=== PATIENT | female | born 1985 | race American Indian/Alaskan Native ===

== ENCOUNTER 2017-02-26 22:59 | Emergency (ER) | payer SELFPAY ==
[2017-02-27 00:53] LABS: Basophils % (Auto) 0.8 % (0.0-1.8); Hematocrit 37.8 % (30.3-42.9); Hemoglobin 12.7 gm/dl (10.1-14.3); Mean Corpuscular HGB Conc 34 % (30-34); Mean Corpuscular Hemoglobin 30 pg (28-32); Mean Corpuscular Volume 89 fl (79-97); Platelet Count 318 K/mm3 (140-440); Red Blood Count 4.23 M/mm3 (3.65-5.03); Red Cell Distribution Width 14.4 % (13.2-15.2); White Blood Count 6.3 K/mm3 (4.5-11.0)
[2017-02-27 01:08] LABS: Anion Gap 17 mmol/L; BUN/Creatinine Ratio 11; Blood Urea Nitrogen 8 mg/dL (7-17); Calcium 9.2 mg/dL (8.4-10.2); Carbon Dioxide 26 mmol/L (22-30); Chloride 105.5 mmol/L (98-107); Glucose 90 mg/dL (65-100); Sodium 144 mmol/L (137-145)
[2017-02-27] MEDS ORDERED: PROVENTIL IH ONE ×4 (01:20→06:14)
[2017-02-27] MEDS ORDERED: ZOFRAN ODT ONE (02:27)
[2017-02-27] MEDS ORDERED: ZOFRAN ODT PO ONE (02:29)
[2017-02-27] MEDS ORDERED: TYLENOL ONE (04:34)
[2017-02-27] MEDS ORDERED: TYLENOL PO ONE (04:36)
--- NOTE | 2017-02-27 04:57 | XRay Report ---
FINAL REPORT EXAM: XR CHEST ROUTINE 2V HISTORY: flu and cough TECHNIQUE: PA and lateral chest radiographs PRIORS: None. FINDINGS: No mediastinal shift. Cardiac silhouette is not enlarged. Overlying sternotomy wires. No pneumothorax or effusion. Ill-defined opacity in the anterior left upper lobe. No acute skeletal finding. IMPRESSION: Ill-defined opacity in the anterior left upper lobe may represent developing focal airspace disease.
[2017-02-27 06:06] VITALS: BP 109/45
[2017-02-27] MEDS ORDERED: ATROVENT IH ONE ×2 (06:13→06:14)
[2017-02-27 08:45] LABS: Bilirubin,Urine NEG (Negative); Blood,Urine NEG (Negative); Ketones,Urine 20 mg/dL (Negative); Leukocyte Esterase,Urine TR (Negative); Mucus,Urine FEW /HPF; Nitrite,Urine NEG (Negative); Protein,Urine <15 mg/dL mg/dL (Negative)
[2017-02-27] MEDS ORDERED: TORADOL IV ONE (08:49)
[2017-02-27] MEDS ORDERED: NACL 0.9% 1000 ML 1,000 ML IV ONE (08:49)
--- NOTE | 2017-02-27 08:50 | Emergency Department Report ---
ED General Adult HPI - General Chief complaint: Upper Respiratory Infection Stated complaint: N/V,FLU Time Seen by Provider: 02/27/17 08:42 Source: patient, EMS (ems notes not available at time of chart dictation), RN notes reviewed Mode of arrival: Ambulatory Limitations: No Limitations - History of Present Illness Initial comments: This is a 31-year-old female who is previously unknown to this provider. Has a past medical history of asthma, heart surgery 3 with ventricular repair, possibly ventricular septal defect, the patient is not certain. Patient presents to the ER with complaints of cough, mucus production, subjective fever, chest wall tightness, generalized malaise. Patient reports that she was recently diagnosed with influenza-like illness, at another hospital , completed medication, felt better and then worse. Her symptoms are constant, they worse with physical exertion, and a decreased with rest. Patient reports that she is not given for the past 2 months, patient reports no leg pain or leg swelling posteriorly on the calf, patient reports no DVT or pulmonary embolus risk factors. -: Gradual, days(s) Location: chest, back, left, right, upper extremity, lower extremity Severity scale (0 -10): 10 Quality: aching Improves with: medication, rest Worsens with: movement Associated Symptoms: chest pain, cough, malaise, shortness of breath, weakness - Related Data Previous Rx's Medication Instructions Recorded Last Taken Type Ibuprofen [Motrin 600 MG tab] 600 mg PO Q8H PRN #30 tablet 04/06/15 Unknown Rx Multivitamin with Iron [Tab-A-Ivette 1 each PO DAILY #30 tablet 04/06/15 Unknown Rx with Iron] oxyCODONE /ACETAMINOPHEN [Percocet 1 tab PO Q6HR PRN #30 tablet 04/06/15 Unknown Rx 5/325] Acetaminophen [Tylenol Arthritis] 650 mg PO Q6HR PRN #30 tablet.er 02/27/17 Unknown Rx Albuterol Sulfate [Proair 90 mcg IH Q4HR PRN #2 aer.pow.[email or web address] 02/27/17 Unknown Rx Respiclick] Azithromycin 250 mg PO QDAY #4 tablet 02/27/17 Unknown Rx Benzonatate [Tessalon Perles] 100 mg PO Q8HR PRN #30 capsule 02/27/17 Unknown Rx Fluticasone [Flonase] 1 spray NS QDAY #1 bottle 02/27/17 Unknown Rx Ibuprofen [Motrin] 600 mg PO Q8H PRN #30 tablet 02/27/17 Unknown Rx Ondansetron [Zofran Odt] 4 mg PO Q8HR PRN #20 tab.rapdis 02/27/17 Unknown Rx predniSONE [Deltasone] 40 mg PO QDAY #8 tab 02/27/17 Unknown Rx Allergies Allergy/AdvReac Type Severity Reaction Status Date / Time ceftriaxone sodium Allergy Hives Verified 04/03/15 04:25 [From Rocephin] Penicillins Allergy Hives Verified 02/27/17 00:00 ED Review of Systems ROS: Stated complaint: N/V,FLU Other details as noted in HPI ED Past Medical Hx - Past Medical History Previous Medical History?: Yes Hx Congestive Heart Failure: No Hx Diabetes: No Hx Asthma: Yes Hx COPD: No - Surgical History Past Surgical History?: Yes Additional Surgical History: Heart Surgery X 3 Ventricular Shunt - Social History Smoking Status: Current Every Day Smoker - Medications Home Medications: Home Medications Medication Instructions Recorded Confirmed Last Taken Type Ibuprofen [Motrin 600 MG tab] 600 mg PO Q8H PRN #30 tablet 04/06/15 Unknown Rx Multivitamin with Iron [Tab-A-Ivette 1 each PO DAILY #30 tablet 04/06/15 Unknown Rx with Iron] oxyCODONE /ACETAMINOPHEN [Percocet 1 tab PO Q6HR PRN #30 tablet 04/06/15 Unknown Rx 5/325] Acetaminophen [Tylenol Arthritis] 650 mg PO Q6HR PRN #30 tablet.er 02/27/17 Unknown Rx Albuterol Sulfate [Proair 90 mcg IH Q4HR PRN #2 aer.pow.ba 02/27/17 Unknown Rx Respiclick] Azithromycin 250 mg PO QDAY #4 tablet 02/27/17 Unknown Rx Benzonatate [Tessalon Perles] 100 mg PO Q8HR PRN #30 capsule 02/27/17 Unknown Rx Fluticasone [Flonase] 1 spray NS QDAY #1 bottle 02/27/17 Unknown Rx Ibuprofen [Motrin] 600 mg PO Q8H PRN #30 tablet 02/27/17 Unknown Rx Ondansetron [Zofran Odt] 4 mg PO Q8HR PRN #20 tab.rapdis 02/27/17 Unknown Rx predniSONE [Deltasone] 40 mg PO QDAY #8 tab 02/27/17 Unknown Rx ED Physical Exam - General Limitations: No Limitations General appearance: alert, in no apparent distress - Head Head exam: Present: atraumatic, normocephalic - Eye Eye exam: Present: normal appearance, EOMI. Absent: nystagmus - ENT ENT exam: Present: normal exam, normal orophraynx, mucous membranes moist, TM's normal bilaterally, normal external ear exam - Neck Neck exam: Present: normal inspection, full ROM - Respiratory Respiratory exam: Present: wheezes, rhonchi. Absent: respiratory distress - Cardiovascular Cardiovascular Exam: Present: regular rate, normal rhythm, normal heart sounds. Absent: systolic murmur, diastolic murmur, rubs, gallop - GI/Abdominal GI/Abdominal exam: Present: soft, normal bowel sounds. Absent: distended, tenderness, guarding, rebound, rigid, pulsatile mass - Extremities Exam Extremities exam: Present: normal inspection, full ROM, normal capillary refill. Absent: pedal edema, joint swelling, calf tenderness - Back Exam Back exam: Present: normal inspection, full ROM. Absent: tenderness, CVA tenderness (R), paraspinal tenderness, vertebral tenderness - Neurological Exam Neurological exam: Present: alert, oriented X3, CN II-XII intact, normal gait, other (Extraocular movements intact. Tongue midline. No facial droop. Facial sensation intact to light touch in the V1, V2, V3 distribution bilaterally. 5 and 5 strength in 4 extremities.. Sensation is intact to light touch in 4 extremities.). Absent: motor sensory deficit - Psychiatric Psychiatric exam: Present: normal affect, normal mood - Skin Skin exam: Present: warm, dry, intact, normal color. Absent: rash ED Course Vital Signs 02/26/17 02/27/17 02/27/17 23:07 00:04 01:26 Temperature 98.3 F 98.3 F Pulse Rate 71 66 Pulse Rate [ 85 Bilateral] Respiratory 18 18 Rate Respiratory 15 Rate [Bilateral ] Blood Pressure 116/68 112/68 O2 Sat by Pulse 97 95 Oximetry 02/27/17 02/27/17 02/27/17 04:39 05:39 06:04 Temperature 98.2 F Pulse Rate 78 Pulse Rate [ Bilateral] Respiratory 20 18 18 Rate Respiratory Rate [Bilateral ] Blood Pressure 109/45 O2 Sat by Pulse 93 Oximetry 02/27/17 06:20 Temperature Pulse Rate Pulse Rate [ 82 Bilateral] Respiratory Rate Respiratory 18 Rate [Bilateral ] Blood Pressure O2 Sat by Pulse Oximetry ED Medical Decision Making - Lab Data Result diagrams: 02/27/17 00:35 02/27/17 00:35 Vital Signs 02/26/17 02/27/17 02/27/17 23:07 00:04 01:26 Temperature 98.3 F 98.3 F Pulse Rate 71 66 Pulse Rate [ 85 Bilateral] Respiratory 18 18 Rate Respiratory 15 Rate [Bilateral ] Blood Pressure 116/68 112/68 O2 Sat by Pulse 97 95 Oximetry 02/27/17 02/27/17 02/27/17 04:39 05:39 06:04 Temperature 98.2 F Pulse Rate 78 Pulse Rate [ Bilateral] Respiratory 20 18 18 Rate Respiratory Rate [Bilateral ] Blood Pressure 109/45 O2 Sat by Pulse 93 Oximetry 02/27/17 06:20 Temperature Pulse Rate Pulse Rate [ 82 Bilateral] Respiratory Rate Respiratory 18 Rate [Bilateral ] Blood Pressure O2 Sat by Pulse Oximetry Labs 02/27/17 02/27/17 02/27/17 00:35 00:35 00:35 WBC 6.3 RBC 4.23 Hgb 12.7 Hct 37.8 MCV 89 MCH 30 MCHC 34 RDW 14.4 Plt Count 318 Lymph % (Auto) 22.3 [place] % (Auto) 9.9 H Eos % (Auto) 8.0 H Baso % (Auto) 0.8 Lymph # 1.4 [place] # 0.6 Eos # 0.5 H Baso # 0.0 Seg Neutrophils % 59.0 Seg Neutrophils # 3.7 Sodium 144 Potassium 4.0 Chloride 105.5 Carbon Dioxide 26 Anion Gap 17 BUN 8 Creatinine 0.7 Estimated GFR > 60 BUN/Creatinine Ratio 11 Glucose 90 Calcium 9.2 Total Creatine Kinase Troponin T HCG, Qual Negative Urine Color Urine Turbidity Urine pH Ur Specific [place] Urine Protein Urine Glucose (UA) Urine Ketones Urine Blood Urine Nitrite Urine Bilirubin Urine Urobilinogen Ur Leukocyte Esterase Urine WBC (Auto) Urine RBC (Auto) U Epithel Cells (Auto) Urine Mucus 02/27/17 02/27/17 02/27/17 08:19 08:53 08:56 WBC RBC Hgb Hct MCV MCH MCHC RDW Plt Count Lymph % (Auto) [place] % (Auto) Eos % (Auto) Baso % (Auto) Lymph # [place] # Eos # Baso # Seg Neutrophils % Seg Neutrophils # Sodium Potassium Chloride Carbon Dioxide Anion Gap BUN Creatinine Estimated GFR BUN/Creatinine Ratio Glucose Calcium Total Creatine Kinase 168 H Troponin T < 0.010 HCG, Qual Urine Color Yellow Urine Turbidity Clear Urine pH 5.0 Ur Specific [place] 1.015 Urine Protein <15 mg/dl Urine Glucose (UA) Neg Urine Ketones 20 Urine Blood Neg Urine Nitrite Neg Urine Bilirubin Neg Urine Urobilinogen 2.0 Ur Leukocyte Esterase Tr Urine WBC (Auto) 3.0 Urine RBC (Auto) 4.0 U Epithel Cells (Auto) 4.0 Urine Mucus Few - EKG Data -: EKG Interpreted by Me - EKG Data When compared to previous EKG there are: previous EKG unavailable 02/27/17 10:28 Sinus, 81 bpm, normal axis, QTC prolonged, right bundle branch block, abnormal EKG, but morphologically consistent with ST elevation myocardial infarction - Radiology Data Radiology results: report reviewed, image reviewed X-ray of the chest suggest developing upper lobe opacity in the left hemithorax , maybe early pneumonia - Medical Decision Making Differential diagnosis, including not limited to: Pneumonia, cold, bronchitis, upper respiratory tract infection, influenza-like illness Assessment and plan: 31-year-old female with cough, wheezing, clinical history supportive of infectious process, x-ray of the chest suggest possible upper lobe pneumonia. Patient has no pulmonary embolus or DVT risk factors she is low risk by well's criteria, patient did endorse atypical chest discomfort for the past few days, troponin negative 1, therefore myocarditis/pericarditis is very unlikely. Low risk by BJ score, low risk by heart score, patient at very low risk for major adverse cardiac event. She felt improved after supportive care, is able to tolerate oral feeds and will be discharged with albuterol, steroids, azithromycin, and nausea medication. Return precautions are reviewed. Given lack of dense consolidation on x-ray the chest, I think post viral MRSA pneumonia is also unlikely. Critical care attestation.: If time is entered above; I have spent that time in minutes in the direct care of this critically ill patient, excluding procedure time. ED Disposition Clinical Impression: Bronchitis Disposition: [id number] TO HOME OR SELFCARE Is pt being admited?: No Does the pt Need Aspirin: No Condition: Stable Instructions: Acute Bronchitis (ED) Additional Instructions: Take the medications as directed. Follow-up with the primary care doctor within the next 7-10 days. Return to the ER went away with fevers, chills, severe chest pain, severe shortness of breath, confusion, intractable nausea or vomiting, inability to tolerate liquid feeds. Symptoms most likely coming from cold/bronchitis, possible left upper lobe early pneumonia. Therefore, it is very important to follow-up with the primary care doctor is recommended to assess for disease progression. Referrals: MALCOM COLE MD [Primary Care Provider] - 3-5 Days [facility] [Provider Group] - 3-5 Days
[2017-02-27] MEDS ORDERED: ZITHROMAX PO ONE (09:00)
[2017-02-27] MEDS ORDERED: REGLAN ONE (09:29)
[2017-02-27] MEDS ORDERED: REGLAN IV ONE (09:36)
== END 2017-02-27 11:09 | disposition home or self-care (01) ==
LOC: ED 22:59
DX: J40 Bronchitis, not specified as acute or chronic (principal); F17.200 Nicotine dependence, unspecified, uncomplicated; Z88.0 Allergy status to penicillin; Z88.1 Allergy status to other antibiotic agents
CPT/HCPCS: 36415; 71020; 80048; 81001; 82550; 84484; 84703; 85025; 93005; 93010; 96361; 96374; 96375; 99285; J1885; J2765; J2930; J7030; Q0162

== ENCOUNTER 2020-05-03 23:27 | Emergency (ER) | payer MEDICAID ==
[2020-05-03] MEDS ORDERED: predniSONE 50 MG TAB PO STA (23:37)
[2020-05-03] MEDS ORDERED: ALBUTEROL 2.5 MG/3 ML NEBU IH ONE (23:37)
--- NOTE | 2020-05-04 00:44 | XRay Report ---
XR chest routine 2V INDICATION / CLINICAL INFORMATION: sob. COMPARISON: None available. FINDINGS: SUPPORT DEVICES: None. HEART /PULMONARY VASCULATURE: No significant abnormality. Median sternotomy changes LUNGS / PLEURA: No significant pulmonary or pleural abnormality. No pneumothorax. ADDITIONAL FINDINGS: No significant additional findings. IMPRESSION: 1. No acute findings. Signer Name: Rafi Wilson MD Signed: 05/04/2020 12:39 AM Workstation Name: [id number]
[2020-05-04] MEDS ORDERED: ALBUTEROL 2.5 MG/3 ML NEBU IH ONE ×2 (02:00→06:11)
[2020-05-04] MEDS ORDERED: IPRATROPIUM 0.02% NEBU 2.5 ML IH ONE (02:01)
--- NOTE | 2020-05-04 03:31 | Emergency Department Report ---
HPI <LEYVAJOANNA - Last Filed: 05/04/20 06:54> - HPI HPI: This is a 34-year-old female presents to the emergency department with a complaint of shortness of breath, wheezing and a mixed dry and productive cough that started today. The patient does have a history of asthma. She tried her home nebulizer without any relief. The patient just gave by on 04/28 at [facility], [place]. She was discharged home 2 days ago, Monday. Patient says that she has a history of preeclampsia during this most recent . She denies any fever, chest pain, nausea, vomiting, back pain, diaphoresis. She does admit to lower extremity swelling but says that this has been consistent recently with her preeclampsia and recent surgery. <MARIAN NIETO S - Last Filed: 05/04/20 07:45> - General Chief Complaint: Dyspnea/Respdistress Time Seen by Provider: 05/04/20 03:03 ED Past Medical Hx <JOANNA LEYVA - Last Filed: 05/04/20 06:54> - Past Medical History Previous Medical History?: Yes Hx Congestive Heart Failure: No Hx Diabetes: No Hx Asthma: Yes Hx COPD: No Additional medical history: preclampsia - Surgical History Past Surgical History?: Yes Additional Surgical History: Heart Surgery X 3 Ventricular Shunt. x4 - Social History Smoking Status: Never Smoker Substance Use Type: None <MARIAN NIETO S - Last Filed: 05/04/20 07:45> - Medications Home Medications: Home Medications Medication Instructions Recorded Confirmed Last Taken Type Ibuprofen [Motrin 600 MG tab] 600 mg PO Q8H PRN #30 tablet 04/06/15 Unknown Rx Multivitamin with Iron [Tab-A-Ivette 1 each PO DAILY #30 tablet 04/06/15 Unknown Rx Multivit with Iron] oxyCODONE /ACETAMINOPHEN [Percocet 1 tab PO Q6HR PRN #30 tablet 04/06/15 Unknown Rx 5/325] Acetaminophen [Tylenol Arthritis] 650 mg PO Q6HR PRN #30 tablet.er 02/27/17 Unknown Rx Albuterol Sulfate [Proair 90 mcg IH Q4HR PRN #2 aer.pow.ba 02/27/17 Unknown Rx Respiclick] Azithromycin 250 mg PO QDAY #4 tablet 02/27/17 Unknown Rx Benzonatate [Tessalon Perles] 100 mg PO Q8HR PRN #30 capsule 02/27/17 Unknown Rx Fluticasone [Flonase] 1 spray NS QDAY #1 bottle 02/27/17 Unknown Rx Ibuprofen [Motrin] 600 mg PO Q8H PRN #30 tablet 02/27/17 Unknown Rx Ondansetron [Zofran Odt] 4 mg PO Q8HR PRN #20 tab.rapdis 02/27/17 Unknown Rx Azithromycin [Zithromax TAB] 250 mg PO QDAY #4 tablet 05/04/20 Unknown Rx predniSONE [Deltasone] 40 mg PO QDAY #8 tab 05/04/20 Unknown Rx ED Review of Systems ROS: Stated complaint: WILLIAM Other details as noted in HPI <JOANNA LEYVA - Last Filed: 05/04/20 06:54> ROS: Stated complaint: WILLIAM Other details as noted in HPI Comment: All other systems reviewed and negative Constitutional: denies: chills, fever Eyes: denies: eye pain, vision change ENT: denies: ear pain, throat pain Respiratory: cough, shortness of breath, wheezing Cardiovascular: edema. denies: chest pain Gastrointestinal: denies: abdominal pain, vomiting Genitourinary: denies: dysuria, discharge Musculoskeletal: denies: back pain, arthralgia Skin: denies: rash, lesions Neurological: denies: headache, weakness <MARIAN NIETO - Last Filed: 05/04/20 07:45> Physical Exam - Physical Exam Vital Signs: Vital Signs 05/03/20 05/03/20 05/04/20 23:27 23:32 01:21 Temperature 98.1 F Pulse Rate 106 H Pulse Rate [ 107 H Bilateral] Respiratory 24 Rate Respiratory 20 Rate [Bilateral ] Blood Pressure 142/81 O2 Sat by Pulse 98 Oximetry 05/04/20 05/04/20 05/04/20 02:08 02:58 06:42 Temperature Pulse Rate Pulse Rate [ 113 H 93 H Bilateral] Respiratory Rate Respiratory 20 20 Rate [Bilateral ] Blood Pressure O2 Sat by Pulse 93 Oximetry <JOANNA LEYVA - Last Filed: 05/04/20 06:54> - Physical Exam Vital Signs: Vital Signs 05/03/20 05/03/20 05/04/20 23:27 23:32 01:21 Temperature 98.1 F Pulse Rate 106 H Pulse Rate [ 107 H Bilateral] Respiratory 24 Rate Respiratory 20 Rate [Bilateral ] Blood Pressure 142/81 O2 Sat by Pulse 98 Oximetry 05/04/20 05/04/20 02:08 02:58 Temperature Pulse Rate Pulse Rate [ 113 H Bilateral] Respiratory Rate Respiratory 20 Rate [Bilateral ] Blood Pressure O2 Sat by Pulse 93 Oximetry Physical Exam: GENERAL: The patient is well-developed well-nourished. HENT: Normocephalic. Atraumatic. Patient has moist mucous membranes. EYES: Extraocular motions are intact. NECK: Supple. Trachea is midline. CHEST/LUNGS: Moderate wheezing throughout the chest. There is some tachypnea but no accessory muscle use. HEART/CARDIOVASCULAR: Regular. There is mild tachycardia. There is no murmur. ABDOMEN: Abdomen is soft, nontender. Patient has normal bowel sounds. SKIN: Skin is warm and dry. Mild b/l LE pitting edema. NEURO: The patient is awake, alert, and oriented. The patient is cooperative. The patient has no focal neurologic deficits. Normal speech. MUSCULOSKELETAL: There is no tenderness or deformity. There is no limitation range of motion. <MARIAN NIETO S - Last Filed: 05/04/20 07:45> ED Course Vital Signs 05/03/20 05/03/20 05/04/20 23:27 23:32 01:21 Temperature 98.1 F Pulse Rate 106 H Pulse Rate [ 107 H Bilateral] Respiratory 24 Rate Respiratory 20 Rate [Bilateral ] Blood Pressure 142/81 O2 Sat by Pulse 98 Oximetry 05/04/20 05/04/20 05/04/20 02:08 02:58 06:42 Temperature Pulse Rate Pulse Rate [ 113 H 93 H Bilateral] Respiratory Rate Respiratory 20 20 Rate [Bilateral ] Blood Pressure O2 Sat by Pulse 93 Oximetry - Reevaluation(s) Reevaluation #1: 05/04/20 06:54 Patient reevaluated following all interventions and in no acute distress. Lungs are clear to auscultation bilaterally, patient breathing at appropriate rate without accessory muscle use, in no respiratory distress, saturating 100% on room air. Discussed at length results of CTA chest, which indicates possible pneumonitis from possible COVID-19, all of which was relayed to the patient who was treated for potentially infectious etiology with azithromycin p.o. to supplement previously given nebulizer treatments and prednisone. <JOANNA LEYVA - Last Filed: 05/04/20 06:54> Vital Signs 05/03/20 05/03/20 05/04/20 23:27 23:32 01:21 Temperature 98.1 F Pulse Rate 106 H Pulse Rate [ 107 H Bilateral] Respiratory 24 Rate Respiratory 20 Rate [Bilateral ] Blood Pressure 142/81 O2 Sat by Pulse 98 Oximetry 05/04/20 05/04/20 02:08 02:58 Temperature Pulse Rate Pulse Rate [ 113 H Bilateral] Respiratory Rate Respiratory 20 Rate [Bilateral ] Blood Pressure O2 Sat by Pulse 93 Oximetry <MARIAN NIETO - Last Filed: 05/04/20 07:45> ED Medical Decision Making - Lab Data Result diagrams: 05/04/20 03:46 05/04/20 03:46 Vital Signs 05/03/20 05/03/20 05/04/20 23:27 23:32 01:21 Temperature 98.1 F Pulse Rate 106 H Pulse Rate [ 107 H Bilateral] Respiratory 24 Rate Respiratory 20 Rate [Bilateral ] Blood Pressure 142/81 O2 Sat by Pulse 98 Oximetry 05/04/20 05/04/20 05/04/20 02:08 02:58 06:42 Temperature Pulse Rate Pulse Rate [ 113 H 93 H Bilateral] Respiratory Rate Respiratory 20 20 Rate [Bilateral ] Blood Pressure O2 Sat by Pulse 93 Oximetry Labs 05/04/20 05/04/20 05/04/20 03:46 03:46 03:46 WBC 11.4 H RBC 3.16 L Hgb 8.9 L Hct 26.7 L MCV 85 MCH 28 MCHC 33 RDW 23.3 H Plt Count 311 Add Manual Diff Complete Total Counted 100 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 % (Manual) 91.0 H Lymphocytes % (Manual) 4.0 L Monocytes % (Manual) 4.0 Eosinophils % (Manual) 1.0 Nucleated RBC % Not Reportable Seg Neutrophils # Man 10.4 H Band Neutrophils # 0.0 Lymphocytes # (Manual) 0.5 L Abs React Lymphs (Man) 0.0 Monocytes # (Manual) 0.5 Eosinophils # (Manual) 0.1 Basophils # (Manual) 0.0 Metamyelocytes # 0.0 Myelocytes # 0.0 Promyelocytes # 0.0 Blast Cells # 0.0 WBC Morphology Not Reportable Hypersegmented Neuts Not Reportable Hyposegmented Neuts Not Reportable Hypogranular Neuts Not Reportable Smudge Cells Not Reportable Toxic Granulation Not Reportable Toxic Vacuolation Not Reportable Dohle Bodies Not Reportable Pelger-Huet Anomaly Not Reportable Marc Rods Not Reportable Platelet Estimate Consistent w auto Clumped Platelets Not Reportable Plt Clumps, EDTA Not Reportable Large Platelets Not Reportable Giant Platelets Not Reportable Platelet Satelliting Not Reportable Plt Morphology Comment Not Reportable RBC Morphology Not Reportable Dimorphic RBCs Not Reportable Polychromasia 1+ Hypochromasia 1+ Poikilocytosis Not Reportable Anisocytosis 2+ Microcytosis Not Reportable Macrocytosis Not Reportable Spherocytes Not Reportable Pappenheimer Bodies Not Reportable Sickle Cells Not Reportable Target Cells Not Reportable Tear Drop Cells Not Reportable Ovalocytes Not Reportable Helmet Cells Not Reportable [place] Bodies Not Reportable [place]ike Rings Not Reportable [place] Cells Not Reportable Bite Cells Not Reportable Crenated Cell Not Reportable Elliptocytes Not Reportable Acanthocytes (Spur) Not Reportable Rouleaux Not Reportable Hemoglobin C Crystals Not Reportable Schistocytes Not Reportable Malaria parasites Not Reportable Arpit Bodies Not Reportable Hem Pathologist Commnt No D-Dimer 800.38 H Sodium 140 Potassium 4.5 Chloride 106.4 Carbon Dioxide 23 Anion Gap 15 BUN 11 Creatinine 0.7 Estimated GFR > 60 BUN/Creatinine Ratio 16 Glucose 124 H Calcium 8.8 Total Bilirubin 0.20 AST 23 ALT 24 Alkaline Phosphatase 74 NT-Pro-B Natriuret Pep 244.8 Total Protein 6.0 L Albumin 3.4 L Albumin/Globulin Ratio 1.3 - Radiology Data Radiology results: report reviewed Print Report Referring Physician: MARIAN NIETO Patient Name: FARHANA ABARCA Date of : 1985 Sex: Female Report Date: 2020-05-04 Report Status: Finalized Findings [facility] [address] [place] [address] Cat Scan Report Signed Patient: FARHANA ABARCA MR#: [id number] : 1985 Acct:[id number] Age/Sex: 34 / F ADM Date: 05/03/20 Loc: ED Attending Dr: Ordering Physician: MARIAN NIETO DO Date of Service: 05/04/20 Procedure(s): CT angio chest Accession Number(s): [id number] cc: MARIAN NIETO DO CTA CHEST WITH CONTRAST INDICATION / CLINICAL INFORMATION: SOB. TECHNIQUE: Axial CT images were obtained through the chest after injection of IV contrast. 3 plane MIP and/or 3D reconstructions were produced. All CT scans at this location are performed using CT dose reduction for ALARA by means of automated exposure control. COMPARISON: None available. FINDINGS: PULMONARY ARTERIES: No central or segmental pulmonary embolus. Evaluation for subsegmental pulmonary emboli limited due to body habitus and respiratory motion artifact THORACIC AORTA: No significant abnormality. HEART: No significant abnormality. ADENOPATHY: No significant adenopathy. LUNGS/PLEURA: Patchy airspace opacities are present within posterior bilateral lower lobes, and right middle lobe and lingula. No pleural effusion. No pneumothorax. ADDITIONAL FINDINGS: None. UPPER ABDOMEN: No acute findings. SKELETAL STRUCTURES: No significant osseous abnormality. IMPRESSION: 1. No evidence of central or segmental pulmonary embolus. 2. Mild patchy airspace opacities within the lungs, suspicious for atypical infectious or inflammatory pneumonitis. These findings may be seen with COVID. Signer Name: Maribell Wilson MD Signed: 05/04/2020 6:16 AM Workstation Name: [id number] Transcribed By: GAGE Dictated By: MARIBELL WILSON MD Electronically Authenticated By: MARIBELL WILSON MD Signed Date/Time: 05/04/20 0616 <JOANNA LEYVA - Last Filed: 05/04/20 06:54> - Lab Data Result diagrams: 05/04/20 03:46 05/04/20 03:46 - Radiology Data Radiology results: image reviewed interpreted by me: Chest x-ray does not show any pneumonia, pleural effusions or pneumothorax. - Medical Decision Making This patient presents to the ED with the complaint of SOB, wheezing and coughing. She just had a delivery on 04/28 and was d/c Monday. Initially the patient has moderate bronchospasm with some tachypnea. She received a prolonged breathing treatment and dose of prednisone. Upon re- evaluation after the breathing treatments, the patient appears and is feeling improved. CXR did not show any pneumonia, pleural effusion, pneumothorax or any acute process. Labs were mostly unremarkable except for an elevated d-dimer level. For this reason, the patient had a CT angio of the chest which did not show any PE or dissection and shows some patchy b/l infiltrates. Upon return from CT, the patient had some return of her symptoms and was given another 5 mg albuterol breathing treatment. This past was signed out to my colleague, Dr Leyva, to follow the CT angio results, re-evaluate and assist with disposition. In revie wing the rest of the chart and her ED course, the patient improved and was discharged home with steroids and antibiotics. She will return to the emergency department with any worsening of her symptoms or any acute distress. <MARIAN NIETO - Last Filed: 05/04/20 07:45> Critical care attestation.: If time is entered above; I have spent that time in minutes in the direct care of this critically ill patient, excluding procedure time. <JOANNA LEYVA - Last Filed: 05/04/20 06:54> Critical Care Time: No Critical care attestation.: If time is entered above; I have spent that time in minutes in the direct care of this critically ill patient, excluding procedure time. <MARIAN NIETO - Last Filed: 05/04/20 07:45> ED Disposition Is pt being admited?: No Does the pt Need Aspirin: No <JOANNA LEYVA - Last Filed: 05/04/20 06:54> Is pt being admited?: No Time of Disposition: 06:22 <MARIAN NIETO S - Last Filed: 05/04/20 07:45> Clinical Impression: Acute bronchospasm, Pneumonitis Dyspnea Qualifiers: Dyspnea type: shortness of breath Qualified Code(s): R06.02 - Shortness of breath; R06.00 - Dyspnea, unspecified; R06.01 - Orthopnea Disposition: - TO HOME OR SELFCARE Condition: Stable Instructions: Community-Acquired Pneumonia, Adult Additional Instructions: Follow-up with primary care doctor in 1 to 2 days for reevaluation and repeat Covid testing. Return to the emergency department for shortness of breath or worsening symptoms. Prescriptions: predniSONE [Deltasone] 40 mg PO QDAY #8 tab Azithromycin [Zithromax TAB] 250 mg PO QDAY #4 tablet Referrals: PRIMARY CARE, [Primary Care Provider] - 3-5 Days
[2020-05-04 04:38] LABS: Alanine Aminotransferase 24 units/L (7-56); Albumin 3.4 g/dL (3.9-5); Blood Urea Nitrogen 11 mg/dL (7-17); Calcium 8.8 mg/dL (8.4-10.2); Hemolysis Index 0
[2020-05-04 04:50] LABS: BUN/Creatinine Ratio 16
[2020-05-04 04:53] LABS: Hematocrit 26.7 % (30.3-42.9); Hemoglobin 8.9 gm/dl (10.1-14.3); Mean Corpuscular HGB Conc 33 % (30-34); Mean Corpuscular Volume 85 fl (79-97); Platelet Count 311 K/mm3 (140-440); Red Blood Count 3.16 M/mm3 (3.65-5.03)
[2020-05-04 05:07] LABS: Red Cell Distribution Width 23.3 % (13.2-15.2)
--- NOTE | 2020-05-04 06:20 | Cat Scan Report ---
CTA CHEST WITH CONTRAST INDICATION / CLINICAL INFORMATION: SOB. TECHNIQUE: Axial CT images were obtained through the chest after injection of IV contrast. 3 plane [place] P and/or 3D reconstructions were produced. All CT scans at this location are performed using CT dose reduction for ALARA by means of automated exposure control. COMPARISON: None available. FINDINGS: PULMONARY ARTERIES: No central or segmental pulmonary embolus. Evaluation for subsegmental pulmonary emboli limited due to body habitus and respiratory motion artifact THORACIC AORTA: No significant abnormality. HEART: No significant abnormality. ADENOPATHY: No significant adenopathy. LUNGS/PLEURA: Patchy airspace opacities are present within posterior bilateral lower lobes, and right middle lobe and lingula. No pleural effusion. No pneumothorax. ADDITIONAL FINDINGS: None. UPPER ABDOMEN: No acute findings. SKELETAL STRUCTURES: No significant osseous abnormality. IMPRESSION: 1. No evidence of central or segmental pulmonary embolus. 2. Mild patchy airspace opacities within the lungs, suspicious for atypical infectious or inflammator y pneumonitis. These findings may be seen with COVID. Signer Name: Rafi Wilson MD Signed: 05/04/2020 6:16 AM Workstation Name: [id number]
[2020-05-04 06:21] LABS: Total Cells Counted 100
[2020-05-04 06:22] LABS: Anisocytosis 2+
[2020-05-04 06:23] LABS: Hypochromasia 1+; Platelet Estimate Consistent w Auto
[2020-05-04] MEDS ORDERED: AZITHROMYCIN 250 MG TAB PO ONE (06:47)
[2020-05-04 07:22] VITALS: BP 152/67
== END 2020-05-04 07:22 | disposition home or self-care (01) ==
LOC: ED 23:27
DX: J18.9 Pneumonia, unspecified organism (principal); J98.01 Acute bronchospasm; R06.00 Dyspnea, unspecified; Z98.890 Other specified postprocedural states; Z79.1 Long term (current) use of non-steroidal anti-inflammatories (NSAID); Z79.2 Long term (current) use of antibiotics; Z79.899 Other long term (current) drug therapy; Z88.0 Allergy status to penicillin; Z88.8 Allergy status to other drugs, medicaments and biological substances
CPT/HCPCS: 36415; 71046; 71275; 80053; 83880; 85007; 85025; 85379; 94640; 99285; J7512; Q9967; 94644